=== PATIENT | male | born 1995 | race African-American/Black ===

== ENCOUNTER 2020-12-09 19:05 | Emergency (ER) | payer OTHER ==
[~2020-12-09] VITALS: Ht 177.8 cm; Wt 92.9 kg
[2020-12-09 19:07] VITALS: BP 146/80
--- NOTE | 2020-12-09 19:56 | REP ---
INDICATION: INJURY. COMPARISON: None. TECHNIQUE: Four views of the right hand are obtained. FINDINGS: Four views of the right hand demonstrate overall normal mineralization.. No fracture or subluxation is seen. No opaque foreign body noted. IMPRESSION: Negative radiographs of the right hand.. <Electronically signed by Vladimir Cameron > 12/09/201951
--- NOTE | 2020-12-09 19:58 | REP ---
INDICATION: INJURY. COMPARISON: None. TECHNIQUE: Five views of the right wrist are provided. FINDINGS: Five views of the right wrist show no evidence of fracture or subluxation. There is a Sukh wrap in place on 1 of the views. Bones, joints, and soft tissues are un remarkable. Joint spaces are preserved. IMPRESSION: No fracture seen. <Electronically signed by Vladimir Cameron > 12/09/201953
[2020-12-09] MEDS ORDERED: NAPROXEN 250 MG TAB PO ONE (20:35)
== END 2020-12-09 20:57 | disposition home or self-care (01) ==
LOC: M ED 19:05
DX: S64.91XA Injury of unspecified nerve at wrist and hand level of right arm, initial encounter (principal); W19.XXXA Unspecified fall, initial encounter; Y92.89 Other specified places as the place of occurrence of the external cause; Y93.9 Activity, unspecified; Y99.1 Military activity

== ENCOUNTER 2022-02-04 21:48 | Emergency (ER) | payer OTHER ==
[~2022-02-04] VITALS: Ht 175.3 cm; Wt 88.6 kg
[2022-02-04 21:49] VITALS: BP 133/79
== END 2022-02-04 22:50 | disposition left against medical advice (07) ==
LOC: M ED 21:48
DX: Z53.21 Procedure and treatment not carried out due to patient leaving prior to being seen by health care provider (principal)

== ENCOUNTER 2022-07-03 05:41 | Emergency (ER) | payer OTHER ==
[~2022-07-03] VITALS: Ht 177.8 cm; Wt 88.2 kg
[2022-07-03 08:41] VITALS: BP 156/78
[2022-07-03] MEDS ORDERED: KETOROLAC 30 MG/ML 1ML VIAL IM ONE (10:10)
[2022-07-03] MEDS ORDERED: KETO10TAB PO (10:26)
== END 2022-07-03 11:45 | disposition home or self-care (01) ==
LOC: M ED 05:41
DX: S40.012A Contusion of left shoulder, initial encounter (principal); S06.0X0A Concussion without loss of consciousness, initial encounter; V48.0XXD Car driver injured in noncollision transport accident in nontraffic accident, subsequent encounter; Y92.410 Unspecified street and highway as the place of occurrence of the external cause; F17.290 Nicotine dependence, other tobacco product, uncomplicated
CPT/HCPCS: 70450; 73030; 96372; 99283; J1885

== ENCOUNTER 2022-09-04 10:20 | Emergency (ER) | payer OTHER ==
[~2022-09-04] VITALS: Ht 177.8 cm; Wt 91.0 kg
[~2022-09-04 10:20] MED LIST: KETO10TAB PO
[2022-09-04] MEDS ORDERED: IBUPROFEN 600MG TAB PO ONE (12:25)
[2022-09-04 12:51] VITALS: BP 129/78
== END 2022-09-04 13:29 | disposition home or self-care (01) ==
LOC: M ED 10:20
DX: M25.462 Effusion, left knee (principal); F17.290 Nicotine dependence, other tobacco product, uncomplicated